=== PATIENT | male | born 1990 | race Caucasian/White ===

== ENCOUNTER 2022-02-03 14:08 | Emergency (ER) | payer SELFPAY ==
[~2022-02-03] VITALS: Wt 68.9 kg
[2022-02-03] MEDS ORDERED: AMOX-CLAV 875-1 EACH PO (20:11)
[2022-02-03] MEDS ORDERED: CYCLOBENZAPRINE10 MG PO (20:11)
[2022-02-03] MEDS ORDERED: TRAMADOL HCL50 MG PO (20:14)
== END 2022-02-03 21:34 | disposition home or self-care (01) ==
LOC: ED 14:08
DX: S39.012A Strain of muscle, fascia and tendon of lower back, initial encounter (principal); K04.7 Periapical abscess without sinus; K02.9 Dental caries, unspecified; X50.0XXA Overexertion from strenuous movement or load, initial encounter; Y93.89 Activity, other specified; Y92.89 Other specified places as the place of occurrence of the external cause; Y99.8 Other external cause status